=== PATIENT | female | born 1990 | race Caucasian/White ===

== ENCOUNTER 2020-07-25 16:30 | Emergency (ER) | payer OTHER ==
[~2020-07-25] VITALS: Ht 165.1 cm; Wt 59.1 kg
[2020-07-25 17:51] VITALS: BP 130/83
== END 2020-07-25 18:01 ==
LOC: EMS 16:30
DX: F11.10 Opioid abuse, uncomplicated (principal)
CPT/HCPCS: 72170; 74018; 99284